=== PATIENT | female | born 1990 | race Caucasian/White ===

== ENCOUNTER 2020-02-11 16:21 | Emergency (ER) | payer OTHER ==
[~2020-02-11] VITALS: Ht 160 cm; Wt 63.5 kg
[2020-02-11 16:39] VITALS: Ht 160 cm; Wt 63.5 kg
[2020-02-11 16:42] VITALS: BP 112/85
== END 2020-02-11 16:42 | disposition other institution (70) ==
LOC: ED 16:21
DX: Z02.89 Encounter for other administrative examinations (principal)